=== PATIENT | male | born 1965 | race Caucasian/White ===

== ENCOUNTER → 2018-03-22 | Outpatient (CLI) | payer OTHER | END | disposition home or self-care (01) | LOC: KCIC MRI 09:39 | DX: S86.812A Strain of other muscle(s) and tendon(s) at lower leg level, left leg, initial encounter (principal); M22.42 Chondromalacia patellae, left knee; R60.0 Localized edema; X58.XXXA Exposure to other specified factors, initial encounter; Y93.89 Activity, other specified; Y92.89 Other specified places as the place of occurrence of the external cause; Y99.8 Other external cause status | CPT/HCPCS: 73721 ==

== ENCOUNTER → 2019-07-09 | Outpatient (CLI) | payer OTHER ==
[2019-07-09 09:00] LABS: BASO % 1 % (0-3); EOS # 0.2 x10^3/uL (0.0-0.7); EOS % 3 % (0-3); HEMATOCRIT 43.5 % (39.0-53.0); LYMPH # 1.9 x10^3/uL (1.0-4.8); LYMPH % 27 % (24-48); MEAN CORPUSCULAR HEMOGLOBIN 30 pg (25-35); MEAN CORPUSCULAR HGB CONC 35 g/dL (31-37); MEAN CORPUSCULAR VOLUME 88 fL (79-100); MONO # 0.6 x10^3/uL (0.0-1.1); MONO % 9 % (0-9); NEUT # 4.3 x10^3/uL (1.8-7.7); NEUT % 60 % (31-73); PLATELET COUNT 303 x10^3/uL (140-400); RED BLOOD COUNT 4.95 x10^6/uL (4.30-5.70); RED CELL DISTRIBUTION WIDTH 12.8 % (11.5-14.5); WHITE BLOOD COUNT 7.1 x10^3/uL (4.0-11.0)
[2019-07-09 09:10] LABS: BILIRUBIN,URINE NEGATIVE (NEG); CLARITY,URINE CLEAR; COLOR,URINE YELLOW; NITRITE,URINE NEGATIVE (NEG); PH,URINE 5.5; PROTEIN,URINE NEGATIVE (NEG-TRACE); UROBILINOGEN,URINE 0.2 mg/dL (0.2 mg/dL)
[2019-07-09 09:22] LABS: BACTERIA,URINE 0 /HPF (0-FEW); RBC,URINE RARE /HPF (0-2); WBC,URINE RARE /HPF (0-4)
[2019-07-09 09:42] LABS: ALBUMIN 4.1 g/dL (3.4-5.0); CALCIUM 9.2 mg/dL (8.5-10.1); CREATININE 1.2 mg/dL (0.7-1.3); GFR 63.6; POTASSIUM 4.5 mmol/L (3.5-5.1)
--- NOTE | 2019-07-09 12:37 | EKG ---
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
--- NOTE | 2019-07-09 13:24 | RAD ---
EXAM: Chest, 2 views. HISTORY: Arthroplasty. Preoperative evaluation. Pain. COMPARISON: None. FINDINGS: 2 views the chest are obtained. There is no infiltrate, pleural effusion or pneumothorax. The heart is normal in size. IMPRESSION: No acute pulmonary finding. Electronically signed by: Otilia Chase MD (07/09/2019 1:21 PM) [facility]
== END | disposition home or self-care (01) ==
LOC: SURGPAT 12:34
PROVIDERS: ATTEND Orthopaedic Surgery Sports Medicine
DX: Z01.818 Encounter for other preprocedural examination (principal); M17.11 Unilateral primary osteoarthritis, right knee; Z96.651 Presence of right artificial knee joint
CPT/HCPCS: 36415; 71046; 80048; 81001; 82040; 82306; 85025; 85610; 85651; 85730; 87641; 93005

== ENCOUNTER 2019-10-01 09:22 | Observation (INO) | payer OTHER ==
[~2019-10-01] VITALS: Ht 175.3 cm; Wt 106.1 kg
[2019-10-01] VITALS (7 sets, daily range): BP systolic 106–119; BP diastolic 69–86
[~2019-10-01 09:22] MED LIST: CETI10TA16 PO; HYDROmorphone 2 MG/ML VIAL IV PRN; IV RINGERS,LACTATED 1000ML 1,000 ML IV SCH; LEVO150T5 PO; LEVO175T5 PO; LIDOCAINE 1% PF 2 ML VIAL. ID PRN; NAPR-514 PO; ONDANSETRON PF 4 MG/2 ML VIAL. IV PRN; OXYC-325 PO; PROCHLORPERAZINE 10 MG/2 ML VIAL. IV PRN; PROPOFOL 0 ML IV ONE; PROPOFOL 20 ML IV ONE; SILD50TA PO; SIMV20TA18 PO; TELM1TAB25 PO; VALA1000 PO; WARF-31 PO; fentaNYL PF VIAL 100 MCG/2 ML VIAL IV PRN
[2019-10-01] MEDS: fentaNYL PF VIAL 100 MCG/2 ML VIAL IV PRN ×2 (11:00→11:08)
[2019-10-01] MEDS: MORPHINE SULFATE 2 MG/ML VIAL. IV PRN ×2 (11:20→11:32)
--- NOTE | 2019-10-01 11:24 | PDOC4 ---
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 He feels like he has worked really well with physical therapy but that lately he just has not made any progress. Therefore, we discussed the above procedure with him and he elected to proceed. Description of procedure: Patient was greeted in the preoperative holding area by myself correct extremity was verified and marked. He was taken to the PACU where he underwent conscious sedation monitored by the anesthesiology team. I then performed repeated closed manipulation maneuver using a short lever arm with the above-noted and range of motion. He was then awakened, he tolerated this well. Postoperative plan is to admit him for observation to the joint center. He will receive likely IV pain medicine as well as physical therapy and occupational therapy. SCHUYLER HOWARD II, MD Oct 01, 2019 11:24
[2019-10-01] MEDS ORDERED: IV NORMAL SALINE 1000ML BAG 1,000 ML IV SCH (11:28)
[2019-10-01] MEDS ORDERED: fentaNYL PF VIAL 100 MCG/2 ML VIAL IV PRN (11:30)
[2019-10-01] MEDS ORDERED: CALCIUM CARBONATE 500 MG TAB.CHEW PO PRN (11:30)
[2019-10-01] MEDS ORDERED: 0.9 % SODIUM CHLORIDE 10 ML DISP.SYRIN. IV PRN (11:30)
[2019-10-01] MEDS ORDERED: IV DEXTROSE 5% 250 ML BAG. IV PRN (11:30)
[2019-10-01] MEDS ORDERED: METOCLOPRAMIDE HCL 10 MG/2 ML VIAL. IV PRN (11:30)
[2019-10-01] MEDS ORDERED: ZOLPIDEM 5 MG TABLET. PO PRN (11:30)
[2019-10-01] MEDS ORDERED: DEXTROSE 50% 25 GM / 50ML DISP.SYRIN. IV PRN (11:30)
[2019-10-01] MEDS ORDERED: diphenhydrAMINE 50 MG/ML VIAL IV PRN (11:30)
[2019-10-01] MEDS ORDERED: MORPHINE SULFATE 2 MG/ML VIAL. IV PRN (11:30)
[2019-10-01] MEDS ORDERED: PROCHLORPERAZINE 5 MG TABLET. PO PRN (11:30)
[2019-10-01] MEDS ORDERED: NON FORMULARY ITEM (Sildenafil Citrate (Viagra) 50 MG) PO PRN (11:45)
[2019-10-01] MEDS ORDERED: VALACYCLOVIR HCL 1000 MG PO PRN (11:45)
[2019-10-01] MEDS: ONDANSETRON PF 4 MG/2 ML VIAL. IV SCH ×2 (12:00→17:40)
[2019-10-01] MEDS: ONDANSETRON ODT 4 MG TAB.RAPDIS. PO SCH ×2 (12:00→17:40)
--- NOTE | 2019-10-01 12:29 | NUR ---
Donte was transferred from recovery. is at bedside. he is rating his pain "0" at this time. he has good sensation, pulses and motion bilateral lower extremities. kingston's bilaterally applied. denies nausea.
[2019-10-01 12:58] LABS: PROTHROMBIN TIME PATIENT 13.7 SEC (11.7-14.0)
[2019-10-01] MEDS: oxyCODONE IR 5 MG TABLET PO PRN ×3 (14:12→22:10)
[2019-10-01] MEDS ORDERED: WARFARIN 7.5 MG TABLET. PO ONE (16:00)
[2019-10-01] MEDS ORDERED: CETIRIZINE HCL 10 MG TABLET. PO SCH (21:00)
[2019-10-01] MEDS ORDERED: LEVOTHYROXINE 150 MCG TABLET PO SCH (21:00)
[2019-10-01] MEDS ORDERED: LOSARTAN POTASSIUM 50 MG TABLET. PO SCH (21:00)
[2019-10-01] MEDS ORDERED: SIMVASTATIN 20 MG TABLET PO SCH (21:00)
[2019-10-01] MEDS ORDERED: hydroCHLOROthiazide 12.5 MG CAPSULE PO SCH (21:00)
[2019-10-02 00:30] VITALS: BP 103/59
--- NOTE | 2019-10-02 02:05 | NUR ---
Patient c/o stomach discomfort/pain. Tums given, Patient declined pain pill. Will monitor.
[2019-10-02 02:06] VITALS: BP 99/65
[2019-10-02] MEDS: ONDANSETRON ODT 4 MG TAB.RAPDIS. PO SCH ×3 (02:19→06:19)
--- NOTE | 2019-10-02 02:23 | NUR ---
Patient verbalized some relief from stomach pain post Tums. Patient requesting another Tums, 0000 dose Zofran ODT given at this time. Will monitor.
[2019-10-02 05:07] LABS: PROTHROMBIN TIME PATIENT 13.9 SEC (11.7-14.0)
--- NOTE | 2019-10-02 05:24 | NUR ---
Patient has been resting quietly eyes closed post Tums, Zofran ODT with no further c/o abdominal pain/discomfort. No further complaints of knee pain. CPAP off at this time, respiratory rate regular unlabored.
[2019-10-02] MEDS ORDERED: MAGNESIUM HYDROXIDE 2,400 MG/30 ML ORAL.SUSP. PO PRN (06:00)
[2019-10-02 06:09] VITALS: BP 106/65
[2019-10-02] MEDS: ONDANSETRON PF 4 MG/2 ML VIAL. IV SCH ×2 (06:19)
[2019-10-02] MEDS: oxyCODONE IR 5 MG TABLET PO PRN (08:11)
[2019-10-02] MEDS ORDERED: MULTIVITAMIN with MINERAL TABLET. PO SCH (09:00)
[2019-10-02] MEDS ORDERED: SENNOSIDES/DOCUSATE 8.6/50MG TABLET. PO SCH (09:00)
[2019-10-02] MEDS ORDERED: ACETAMINOPHEN 500 MG TABLET PO SCH (09:00)
--- NOTE | 2019-10-02 09:23 | DISCH ---
DISCHARGE INSTRUCTIONS Condition on Discharge Condition on Discharge: Stable Activity After Discharge Activity Instructions for Disc: No restrictions, Activity as tolerated, Walk in house Other activity instructions: continue therapy as instructed Bathing Instructions: Shower-keep dressing dry Lifting Instructions after Dis: No heavy lifting, No pulling or pushing, Do not lift >10 pounds Exercise Instruction after Dis: Exercise per therapy Driving Instructions after Dis: No driving for 2 weeks Weight Bearing Status after Di: No restrictions, Full weight bearing, As tolerated Diet after Discharge Diet after Discharge: Regular Diet Texture: Regular Wound Incision Care Wound/Incision Care: Ice to area for comfort Other wound/incision instructi: no dressing Checks after Discharge DC Comment: increase fruits, vegetbles and fiber Community/Resources/Services Services at Discharge: Outpatient Therapy, PT EVALUATE & TREAT Contacting the [facility] after DC Call your doctor for: Concerns you may have Follow-Up Follow up with: physical therapy Follow Up With: follow up with Dr. Howard in 2 weeks as scheduled Treatment/Equipment after DC Adaptive Equipment Issued: None Warfarin Follow-Up Warfarin Follow UP: not on coumadin DINORAH HOWARD II, MD Oct 02, 2019 09:23
--- NOTE | 2019-10-02 09:24 | PDOC ---
ORTHO PROGRESS NOTES Subjective He feels like he is doing well and his pain is controlled. He has had some occasional nausea that has responded well to Zofran. He is tolerating regular diet. Vitals Vital Signs Date Time Temp Pulse Resp B/P (MAP) Pulse Ox O2 Delivery O2 Flow Rate FiO2 10/02/19 08:11 Room Air 10/02/19 06:09 98.4 109 18 106/65 (79) 96 98.4 10/01/19 19:14 2.0 Labs Laboratory Tests Test 10/01/19 12:20 10/02/19 04:00 Prothrombin Time 13.7 SEC (11.7-14.0) 13.9 SEC (11.7-14.0) Prothromb Time International Ratio 1.1 (0.8-1.1) 1.1 (0.8-1.1) Laboratory Tests Test 10/01/19 12:20 10/02/19 04:00 Prothrombin Time 13.7 SEC (11.7-14.0) 13.9 SEC (11.7-14.0) Prothromb Time International Ratio 1.1 (0.8-1.1) 1.1 (0.8-1.1) Notes He is awake and alert and sitting in a chair. Range of motion is just shy full extension to 90. Assessment and Plan He'll be discharged home after physical therapy. He has daily PT appointment set up as an outpatient already. DINORAH HOWARD II, MD Oct 02, 2019 09:24
--- NOTE | 2019-10-02 09:25 | PDOC3 ---
Discharge Summary Visit Information Date of Admission: Oct 01, 2019 Date of Discharge: Oct 02, 2019 Admitting Diagnosis: arthrofibrosis of right total knee arthroplasty Brief Hospital Course Allergies Allergies Coded Allergies Type Severity Reaction Last Updated Verified pine nut Allergy Intermediate 10/01/19 Yes Uncoded Allergies Type Severity Reaction Last Updated Verified date palm Adverse Reaction Intermediate Unknown 07/30/19 skin fruit Adverse Reaction Intermediate Unknown 07/30/19 Vital Signs Vital Signs Date Time Temp Pulse Resp B/P (MAP) Pulse Ox O2 Delivery O2 Flow Rate FiO2 10/02/19 08:11 Room Air 10/02/19 06:09 98.4 109 18 106/65 (79) 96 98.4 10/01/19 19:14 2.0 Lab Results Laboratory Tests Test 10/01/19 12:20 10/02/19 04:00 Prothrombin Time 13.7 SEC (11.7-14.0) 13.9 SEC (11.7-14.0) Prothromb Time International Ratio 1.1 (0.8-1.1) 1.1 (0.8-1.1) Laboratory Tests Test 10/01/19 12:20 10/02/19 04:00 Prothrombin Time 13.7 SEC (11.7-14.0) 13.9 SEC (11.7-14.0) Prothromb Time International Ratio 1.1 (0.8-1.1) 1.1 (0.8-1.1) Brief Hospital Course Mr. Bray is a 54 old male who underwent a total knee replacement with myself about 2 months ago. His range of motion had plateaued. He was brought into the hospital and underwent a manipulation under anesthesia and tolerated this well. He was taken to the joint Center for care and observation. He'll receive PT while inpatient. His pain is controlled. Normal bowel and bladder function were present. He was maintaining his activities of daily living well. He remained hemodynamically stable and afebrile. Discharge Information Condition at Discharge: Stable Follow Up: Weeks Disposition/Orders: D/C to Home Scheduled Cetirizine Hcl (Cetirizine Hcl) 10 Mg Tablet, 10 MG PO DAILY for allergy control, (Reported) Entered as Reported by: GUSTAVO PINA on 07/19/19 1214 Last Taken: Unknown Dose on 09/30/19 Last Action: Continued on 1/1130 by FRANKLYN HOWARD MD Levothyroxine Sodium (Levothyroxine Sodium) 150 Mcg Tablet, 150 MCG PO QODAY for THYROID SUPPLEMENT, #30 Ref 0 (Reported) Entered as Reported by: GUSTAVO PINA on 07/19/191213 Last Taken: Unknown Dose on 09/30/19 Last Action: Continued on 10/01/191130 by FRANKLYN HOWARD MD Levothyroxine Sodium (Levothyroxine Sodium) 175 Mcg Tablet, 175 MCG PO QODAY for THYROID SUPPLEMENT, #30 Ref 0 (Reported) Entered as Reported by: GUSTAVO PINA on 07/19/191213 Last Taken: Unknown Dose on 09/30/19 Last Action: Continued on 10/01/191130 by FRANKLYN HOWARD MD Simvastatin (Simvastatin) 20 Mg Tablet, 20 MG PO HS for FOR CHOLESTEROL, #30 Ref 0 (Reported) Entered as Reported by: GUSTAVO PINA on 07/19/191213 Last Taken: Unknown Dose on 09/30/19 Last Action: Continued on 10/01/191130 by FRANKLYN HOWARD MD Telmisartan/Hydrochlorothiazid (Telmisartan-Hctz 40-12.5 Mg Tb) 1 Each Tablet, 1 EACH PO DAILY16 for bp control, (Reported) Entered as Reported by: GUSTAVO PINA on 07/19/191213 Last Taken: Unknown Dose on 09/30/19 Last Action: Converted on 10/01/191130 by FRANKLYN HOWARD MD Scheduled PRN Sildenafil Citrate (Viagra) 50 Mg Tablet, 50 MG PO ONCE PRN for for ED, (Reported) Entered as Reported by: GUSTAVO PINA on 07/19/191213 Last Taken: Unknown Dose on 09/30/19 Last Action: Converted on 10/01/191130 by FRANKLYN HOWARD MD Valacyclovir Hcl (Valacyclovir) 1,000 Mg Tablet, 1,000 MG PO PRN 1X PRN for r cold sore treatment, (Reported) Entered as Reported by: GUSTAVO PINA on 07/19/191213 Last Action: Converted on 10/01/191130 by FRANKLYN HOWARD MD Discontinued Medications Oxycodone HCl/Acetaminophen (Percocet 5-325 mg Tablet) 1 Each Tablet, 1 TAB PO PRN Q4-6HRS PRN for PAIN MDD 12 Tablet(s), #60 Ref 0 (Reported) Entered as Reported by: ORLANDO LAZAR on 08/01/19912 Last Action: Discontinued on 09/27/191200 by GUSTAVO PINA Warfarin Sodium (Warfarin Sodium) 5 Mg Tablet, 5 MG PO DAILYWSUP for blood thinner, #30 Ref 0 (Reported) Entered as Reported by: ORLANDO LAZAR on 08/01/191251 Last Action: Discontinued on 09/27/191200 by GUSTAVO PINA Patient Instructions Patient Instructions He'll be discharged home, weightbearing as tolerated. He has outpatient physical therapy set up, daily appointments for the next 2 weeks. I'll see him back in 2 weeks, sooner should a problem arise DINORAH HOWARD II, MD Oct 02, 2019 09:25
--- NOTE | 2019-10-02 10:00 | NUR ---
reviewed discharge instructions with Tennille. follow up in [address] ponce. has an outpatient therapy appt this afternoon. given for script for Adrian. verbalized understanding of discharge instructions.
[2019-10-02] MEDS ORDERED: ONDANSETRON PF 4 MG/2 ML VIAL. IV PRN (12:00)
[2019-10-02] MEDS ORDERED: ONDANSETRON ODT 4 MG TAB.RAPDIS. PO PRN (12:00)
[2019-10-02] MEDS ORDERED: BISACODYL 10 MG SUPP.RECT. PR PRN (16:00)
[2019-10-02] MEDS ORDERED: LEVOTHYROXINE 175 MCG TABLET PO SCH (21:00)
== END 2019-10-02 10:10 | disposition home or self-care (01) ==
LOC: SURG 09:22 → 4 SOUTHEST 11:39
PROVIDERS: ADMIT Orthopaedic Surgery Sports Medicine; ATTEND Orthopaedic Surgery Sports Medicine
DX: M24.661 Ankylosis, right knee (principal)
CPT/HCPCS: 27570; 36415; 85610; 97110; 97116; 97162; G0378; G0379; J2270; J2704; J3010; Q0162